=== PATIENT | male | born 1960 | race Caucasian/White ===

== ENCOUNTER → 2024-03-03 16:32 | Outpatient (REF) | payer OTHER, SELFPAY | LOC: HWRAD 16:32 | DX: J18.9 Pneumonia, unspecified organism (principal) | CPT/HCPCS: 71046 ==

== ENCOUNTER → 2024-03-25 15:01 | Outpatient (REF) | payer OTHER, SELFPAY | LOC: HWRAD 15:01 | DX: Z87.891 Personal history of nicotine dependence (principal) | CPT/HCPCS: 71271 ==

== ENCOUNTER → 2024-05-01 07:43 | Outpatient (REF) | payer OTHER, SELFPAY | LOC: RSP 07:43 | DX: J41.1 Mucopurulent chronic bronchitis (principal) | CPT/HCPCS: 94727; 94729; 88738; 94010 ==